=== PATIENT | male | born 1990 | race Caucasian/White ===

== ENCOUNTER 2020-08-27 05:35 | Day surgery (SDC) | payer BC ==
[~2020-08-27] VITALS: Ht 182.9 cm; Wt 127.2 kg
--- NOTE | 2020-08-27 06:42 | NUR ---
PT EXPRESSES FAINTING WITH NEEDLES. UPON IV START ATTEMPT PT DRY HEAVED. HEAD OF BED LOWERED COLD CLOTHS PROVIDED.
--- NOTE | 2020-08-27 07:06 | NUR ---
DUE TO PT REACTION WITH NEEDLES, HEPARIN GIVEN TO DADA P BEAN PICKER TO GIVE IN OR.
--- NOTE | 2020-08-27 09:40 | NUR ---
08/27/20 0940 Sheets,Blanca 0903 PT ARRIVED TO PACU ON 6L VIA MASK, PT SNORING AND FOGGING NOTED IN O2 MASK, JAW THRUST NEEDED OFF AND ON TO MAINTAIN AIRWAY. VSS.
--- NOTE | 2020-08-27 10:05 | NUR ---
PT ARRIVED FROM PACU. REPORT RECIEVED FROM SWATI Umaña RN. PT PROVIDED WITH WATER. PT RESTING IN LOCKED AND LOWERED BED. CALL LIGHT WITHIN REACH. NO FURTHER REQUESTS AT THIS TIME
[2020-08-27] MEDS ORDERED: NORCO 10-325 T1 EACH PO (10:35)
--- NOTE | 2020-08-27 10:45 | NUR ---
PT PROVIDED WITH MORE ICE WATER AND CRACKERS. DISCHARGE CRITERIA DISCUSSED. PT RESTING IN LOCKED AND LOWERED BED, SIDE RAILS UP, CALL LIGHT WITHIN REACH. MOTHER AT THE BEDSIDE. NO FURTHER REQUESTS AT THIS TIME.
--- NOTE | 2020-08-27 11:13 | OR ---
[facility] [address], [place] [address] Signed DATE OF OPERATION: 08/27/2020 SURGEON: Shanell Heath MD PREOPERATIVE DIAGNOSIS: Reducible left inguinal hernia. POSTOPERATIVE DIAGNOSIS: Reducible left pantaloon inguinal hernia. PROCEDURE: Left Abbe onlay mesh inguinal herniorrhaphy. ESTIMATED BLOOD LOSS: None. INDICATIONS: Sancho is a 30-year-old gentleman with a body mass index of 38. He was told at least four years ago that he had a left inguinal hernia. 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 He said he has to push up to 400 pounds at a time. He has noticed increased pain and swelling in that left groin. He said it is bothering every day at this point. He had been to his primary care provider who then asked him to see me as a general surgeon. He said once in a while he feels a little in the right groin, but not much. On physical exam, he probably has a very small right inguinal hernia, although difficult to know based on his body habitus. The left is much more clear. Clearly, it is obvious he has a moderate-sized, but reducible left inguinal hernia. In the office, I gave him a booklet on hernias and we went to a page by page and I circled the sections relevant to him. He understands the difference between a primary suture repair and a mesh repair. We reviewed the expected intraop and postop course. There is risk to surgery including, but not limited to bleeding, infection, scarring, change in contour of the skin, damage to the nerves, ischemic orchitis, recurrent hernias and chronic pain. He had expressed understanding and wished to proceed. 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 He later had surgery on his ankle around age 13 and did fine. Although, we obviously do not have any records of specific anesthetic given for his ankle. Consequently, I did have him see our anesthesia providers preoperatively. In our preop area then he received an ultrasound-guided truncal nerve block of the ilioinguinal iliohypogastric nerves by our nurse fuel cell battery technician. I had met with him prior to that and we all agreed on the left groin and marked that appropriately. He had expressed understanding and wished to proceed. Electronically Signed By: SHANELL HEATH MD 08/27/20 1113 PATIENT NAME: SANCHO TRAN OPERATIVE REPORT DATE OF : 88 REPORT #: [id number] PHYSICIAN: SHANELL HEATH MD PCP: GER SALINAS PAC REPORT IS CONFIDENTIAL AND NOT TO BE RELEASED WITHOUT AUTHORIZATION [address] [address] Signed DESCRIPTION OF PROCEDURE: Sancho was taken into the operating room after his truncal nerve block and placed in the supine position under LMA anesthesia. He was given propofol and ketamine by our nurse fuel cell battery technician. No gas was given. He had been given preoperative subcutaneous heparin along with antibiotics. SCDs were utilized. He had been prepped and draped in the usual sterile fashion. We made our standard oblique incision in the left groin and carried it down through the tissue bluntly and with the cautery. The external oblique was opened along its length and developed medially and laterally. His iliohypogastric nerve was quite high in the groin. The ilioinguinal nerve followed his usual course. We had elevated the cord structures at the level of pubic tubercle with the help of a Esperanza drain. On inspection, we found that he had a double hernia. We the hernia sac and the fat from the cord structures at the level of deep ring and the hernia sac was suture ligated at the level of deep ring with 2-0 PDS suture and the hernia sac was amputated and passed off the field. After that, the direct hernia sac was from the cord structures and it was simply reduced and then the floor of inguinal canal was imbricated with 2-0 PDS suture starting at the pubic tubercle all the way up to the level of deep ring we did this in order to hold the direct hernia down and out of the way for placement of the mesh. After this, a piece of flat Prolene mesh was cut to fit his groin and a slit was made in the mesh to accommodate the cord structures at the level of deep ring. The mesh was then held in place medially and laterally with help of running #1 Prolene suture. This gave excellent coverage of the direct and indirect spaces. We calculated our maximum dose of Marcaine and I injected additional Marcaine into the area of iliohypogastric and ilioinguinal nerves as well as the subcutaneous tissues. The wound was then irrigated and suctioned out until clear. The external oblique was closed over the repair with a running 2-0 PDS suture. The Balta's fascia was reapproximated with a running 3-0 Monocryl sutures. The dermis was reapproximated with interrupted 3-0 subcuticular Monocryl sutures. The skin edges were reapproximated with a running 5-0 fast absorbing plain gut suture. Dry gauze and tape were then applied. Sancho was then awakened from his anesthesia, extubated in the OR, and taken to the recovery room in stable condition. Shanell Heath MD ALB/MODL /[id number] Electronically Signed By: SHANELL HEATH MD 08/27/20 1113 PATIENT NAME: SANCHO TRAN OPERATIVE REPORT DATE OF : [birth year] REPORT #: [id number] PHYSICIAN: SHANELL HEATH MD PCP: GER SALINAS PAC REPORT IS CONFIDENTIAL AND NOT TO BE RELEASED WITHOUT AUTHORIZATION [address] [place], [place] [address] Signed cc: MD Ger Peter Copies: SHANELL HEATH MD ~ Electronically Signed By: SHANELL HEATH MD 08/27/20 1113 PATIENT NAME: SANCHO TRAN OPERATIVE REPORT DATE OF : [birth year] REPORT #: [id number] PHYSICIAN: SHANELL HEATH MD PCP: GER SALINAS PAC REPORT IS CONFIDENTIAL AND NOT TO BE RELEASED WITHOUT AUTHORIZATION
--- NOTE | 2020-08-27 11:19 | NUR ---
PT UP TO THE RESTROOM. NO COMPLICATIONS VOIDING OR AMBULATING. PT NOW RESTING IN LOCKED AND LOWERED BED, SIDE RAILS UP, CALL LIGHT WITHIN REACH. MOTHER AT THE BEDSIDE.
--- NOTE | 2020-08-27 11:40 | NUR ---
PT LEFT THE UNIT VIA WHEELCHAIR. PT TRANSFERRED FROM WHEELCHAIR TO VEHICLE WITH NO COMPLICATIONS. MOTHER LEVAR PROVIDED TRANSPORTATION.
== END 2020-08-27 11:40 | disposition home or self-care (01) ==
LOC: DS 05:35
PROVIDERS: ATTEND Colon & Rectal Surgery
PROC: 3E0T33Z Introduction of Anti-inflammatory into Peripheral Nerves and Plexi, Percutaneous Approach (ICD-10-PCS; 2020-08-27)
PROC: 0YU60JZ Supplement Left Inguinal Region with Synthetic Substitute, Open Approach (ICD-10-PCS; 2020-08-27)
PROC: 3E0T3BZ Introduction of Anesthetic Agent into Peripheral Nerves and Plexi, Percutaneous Approach (ICD-10-PCS; principal; 2020-08-27 06:45)
DX: K40.90 Unilateral inguinal hernia, without obstruction or gangrene, not specified as recurrent (principal); G89.18 Other acute postprocedural pain; E66.9 Obesity, unspecified; Z68.38 Body mass index [BMI] 38.0-38.9, adult; Z88.4 Allergy status to anesthetic agent; Z91.09 Other allergy status, other than to drugs and biological substances
CPT/HCPCS: 76942; C1781; J0690; J1100; J1644; J1885; J2001; J2405; J2704; J7121